=== PATIENT | male | born 1985 | race Caucasian/White ===

== ENCOUNTER 2021-04-15 08:08 | Outpatient (REF) | payer OTHER, MEDICAID, SELFPAY ==
--- NOTE | ~2021-04-15 | US_ITS ---
EXAMINATION: US ABDOMEN COMPLETE CLINICAL INFORMATION: Abdominal pain. Jaundice. COMPARISON: None TECHNIQUE: Real-time imaging of the abdominal viscera. FINDINGS: PANCREAS: Not well visualized ABDOMINAL AORTA: The proximal, mid, and distal segments are normal in caliber. INFERIOR VENA CAVA: Visualized portions are normal. LIVER: Normal. The liver is normal in size. The liver contour is normal. Parenchymal echogenicity is normal. No focal hepatic lesion. There is no intrahepatic biliary duct dilatation seen. GALLBLADDER: Normal. The gallbladder is physiologically distended without evidence of stones, sludge, polyps, wall thickening or pericholecystic fluid. COMMON BILE DUCT: Normal in caliber measuring 0.5 cm in diameter. RIGHT KIDNEY: Normal. No hydronephrosis. No renal calculi or focal parenchymal lesions. The kidney measures 11.8 cm in maximum dimension. LEFT KIDNEY: There is a 1.6 x 1.4 x 1.3 cm simple cyst in the upper pole. No hydronephrosis or renal calculi. The kidney measures 11.3 cm in maximum dimension. SPLEEN: Normal. The spleen measures 8.8 cm in maximum dimension. FREE FLUID: None. US/US abdomen complete IMPRESSION: Left renal cyst. Limited visualization of the pancreas. Otherwise unremarkable exam.
== END 2021-04-15 08:09 | disposition home or self-care (01) ==
LOC: HO.US 08:08
PROVIDERS: Visit Provider Nurse Practitioner
DX: R10.84 Generalized abdominal pain (principal); R17 Unspecified jaundice
CPT/HCPCS: 76700

== ENCOUNTER 2023-02-07 16:07 | Outpatient (AMB) | payer OTHER, MEDICAID, SELFPAY ==
[2023-02-07 16:12] VITALS: BP 106/70; PULSE 82; BMI 28.2
--- NOTE | 2023-02-07 16:12 | MHC.OFFVIS ---
Intake Vital Signs 02/07/23 16:12 Height 6 ft 1 in Weight 213 lb 6.519 oz BMI 28.2 BP 106/70 Blood Pressure Location Lt brachial Position Sitting Pulse 82 Intake Visit Reasons: constipation Intake Note: Abdifatah presents in office as a new.patient for constipation PT CC: pt reports having constipation , rectal bleeding , abdominal discomfort pt denies any other GI Issues Rehabilitation Therapy Aide Required: Yes Rehabilitation Therapy Aide Language: Belarusian Accompanied by: Self / Same As Patient Allergies No Known Allergies Allergy (Verified 02/07/23 16:13) HPI constipation HPI Details 37-year-old male with no significant past medical history is here today for initial consultation. Patient was sent to us by his PCP. Patient reports to have constipation occasional abdominal discomfort, bloating postprandially, occasional blood on the tissue when he wipes. Patient does not have any family history of colorectal cancer. History of ovarian cancer. Patient denies melena, hematochezia (except occasionally after bowel movement when wiping), unintentional weight loss or ribbon like stools. Patient denies dyspepsia, dysphagia or odynophagia. Patient does not eat much of a vegetables, does not drink much water. Patient denies any rectal pain. Denies any nausea or vomiting. Denies any fever or chills. [facility] Surgical History (Updated 02/07/23 @ 16:19 by Bon Tamayo) History of testicular surgery Family History (Updated 02/07/23 @ 16:18 by Bon Tamayo) Mother Vaginal cancer Paternal Grandfather Cancer Maternal Uncle Cancer Social History (Updated 02/07/23 @ 16:15 by Bon Tamayo) Household Members: Family Alcohol intake: current Alcohol intake frequency: holidays/special occasions only Patient Tobacco Use Status: Never used Tobacco Review of Systems Const Denies weight gain and Denies weight loss ENT Reports no additional complaints, Denies dysphagia and Denies odynophagia Card Reports no additional complaints Resp Reports no additional complaints GI Reports abdominal pain, Denies belching, Denies melena, Reports bloating, Reports constipation, Denies dysphagia, Denies excessive flatus, Denies dyspepsia, Denies heartburn, Denies diarrhea, Denies loose stools, Denies nausea, Denies odynophagia and Denies vomiting Reports no additional complaints Musc Reports no additional complaints Neuro Reports no additional complaints Psych Reports no additional complaints Endo Reports no additional complaints Physical Exam Vital Signs: Last Vital Signs Pulse 82 02/07/23 16:12 BP 106/70 02/07/23 16:12 BMI result Body Mass Index 28.2 Const General: healthy appearing, no acute distress and well developed Nutritional Appearance: obese Orientation/consciousness: patient oriented x3 HEENT Head: Yes normal to inspection, Yes normocephalic and Yes atraumatic Face and sinus: Yes normal facial exam Mouth: Normal oral and palatal mucosa present Throat: Yes posterior oropharynx normal, Yes tonsils normal and Yes uvula midline Eyes General: appearance normal, both eyes and all related structures Neck Neck: Yes normal visual inspection, Yes full ROM and Yes trachea midline Thyroid: Thyroid normal Resp Effort & Inspection: normal respiratory effort, able to speak in complete sentences, no tracheal deviation and symmetric chest movement Auscultation: clear to auscultation bilaterally Cardio Rate: regular rate Heart sounds: S1 normal heart sound present and S2 normal heart sound present GI Inspection: Yes normal to inspection, No distended and Yes obesity Palpation (GI): Soft to palpation, not firm, nontender and No hepatosplenomegaly present Auscultation: normal bowel sounds General: Yes no CVA tenderness Back/Spine/Pelvis Back: no CVA tenderness Skin General skin exam: elasticity normal, turgor normal and dry skin Neuro General: patient oriented x3 Psych Appearance: grossly normal Mental Status: mental status grossly normal Speech and movement: Normal speech and movement present Assessment & Plan Assessment & Plan (1) Postprandial abdominal bloating: Code(s): R14.0 - Abdominal distension (gaseous) Plan: Occasional postprandial abdominal bloating. Discussed with patient low FODMAP diet. Patient needs to move his bowels better. He was encouraged to increase fluid intake and activity to promote better bowel motility. May also take MiraLax daily (2) Abdominal pain: Code(s): R10.9 - Unspecified abdominal pain Qualifiers: Abdominal location: unspecified location Qualified Code(s): R10.9 - Unspecified abdominal pain Plan: Occasional abdominal cramping if no bowel movement. Sometimes pain in the right upper quadrant. Negative Orozco sign, normal exam. Will send patient for ultrasound. Will check lipase and liver profile. (3) Constipation: Code(s): K59.00 - Constipation, unspecified Qualifiers: Constipation type: slow transit constipation Qualified Code(s): K59.01 - Slow transit constipation Plan: May take [id number] MiraLax. Increase fluid intake and activity to promote better bowel motility. (4) History of rectal bleeding: Code(s): Z87.19 - Personal history of other diseases of the digestive system Plan: Occasional blood when wiping after bowel movement. Will send patient script for Proctosol. Patient will call us if he continue to have rectal bleeding. Normal H&H in September. I will see patient in 3 months, sooner on as needed basis. Patient is agreeable to this plan and verbalizes understanding of instructions. He was given the opportunity to ask questions and all questions answered. Thank you for allowing me to participate in his care Orders: Orders Liver Panel 02/13/23 R10.9 - Unspecified abdominal pain US abdomen complete 02/07/23 R10.9 - Unspecified abdominal pain Lipase 02/13/23 R10.9 - Unspecified abdominal pain Medications: New hydrocortisone 2.5% (Proctosol HC) 1 appl FL BID-QID PRN 30 grams 2RF hemorrhoids K64.9 - Unspecified hemorrhoids Coding Level of Care Code New Pt Level 3 (59575) Diagnoses Postprandial abdominal bloating R14.0 Abdominal pain, unspecified abdominal location R10.9 Abdominal location: unspecified location Slow transit constipation K59.01 Constipation type: slow transit constipation History of rectal bleeding Z87.19 Time Spent (min) 40 Comment 30 minutes spent with patient and additional 10 minutes spent reviewing his records
== END 2023-02-07 16:51 | disposition home or self-care (01) ==
PROVIDERS: Visit Provider Nurse Practitioner Family
DX: R14.0 Abdominal distension (gaseous) (principal); R10.9 Unspecified abdominal pain; K59.01 Slow transit constipation; Z87.19 Personal history of other diseases of the digestive system
CPT/HCPCS: 99203

== ENCOUNTER → 2023-02-07 16:07 | Outpatient (BNVA) | payer OTHER, MEDICAID, SELFPAY | PROVIDERS: Visit Provider Nurse Practitioner Family ==

== ENCOUNTER 2023-02-13 08:50 | Outpatient (REF) | payer OTHER, SELFPAY ==
[2023-02-13 12:01] LABS: Alanine Aminotransferase 82 U/L (0-40); Albumin Level 3.9 g/dL (3.5-5.0); Alkaline Phosphatase 89 U/L (39-117); Aspartate Amino Transferase 46 U/L (5-37); Bilirubin Direct 0.4 mg/dL (0.0-0.5); Bilirubin Total 1.2 mg/dL (0.0-1.0); Lipase 14 U/L (8-78); Total Protein 7.2 g/dL (6.5-8.0)
== END 2023-02-13 08:51 | disposition home or self-care (01) ==
LOC: HO.LAB 08:50
PROVIDERS: PCP Registered Nurse; Visit Provider Nurse Practitioner Family
DX: R10.9 Unspecified abdominal pain (principal)
CPT/HCPCS: 36415; 80076; 83690

== ENCOUNTER 2023-02-28 09:35 | Outpatient (REF) | payer OTHER, SELFPAY ==
[2023-03-01 08:50] LABS: HBc Num1 1.67 S/CO (0.00-0.79); HBsAGNum1 0.34 S/CO (0.00-0.99); Hepatitis A Antibody IgM 0.18 Index (0-0.79); Hepatitis B Surface Antigen Negative (Negative); ~HepC Num1 0.07 S/CO (0.00-0.79); ~Hepatitis A Antibody IgM Nonreactive (Nonreactive); ~Hepatitis B Surface Antibody REACTIVE (Nonreactive); ~Hepatitis C Antibody Nonreactive (Nonreactive)
[2023-03-01 11:43] LABS: HBc Num2 1.82 S/CO; HBc Num3 1.96 S/CO; Hepatitis B Core Antibody Reactive (Nonreactive)
[2023-03-01 18:33] LABS: Transglutaminase IgA <1.0 U/mL
[2023-03-02 12:43] LABS: Immunoglobulin A 224 mg/dL (47-310)
== END 2023-02-28 09:36 | disposition home or self-care (01) ==
LOC: HO.HHCL 09:35
PROVIDERS: Visit Provider Registered Nurse
DX: R10.9 Unspecified abdominal pain (principal); G89.29 Other chronic pain; R74.8 Abnormal levels of other serum enzymes
CPT/HCPCS: 36415; 82784; 86364; 86704; 86706; 86709; 86803; 87340

== ENCOUNTER 2023-03-06 08:51 | Outpatient (REF) | payer OTHER, SELFPAY ==
--- NOTE | ~2023-03-06 | US_ITS ---
EXAMINATION: US ABDOMEN COMPLETE CLINICAL INFORMATION: Unspecified abdominal pain. COMPARISON: Ultrasound abdomen complete 04/15/2021. TECHNIQUE: Real-time imaging of the abdominal viscera. Technically difficult study secondary to bowel gas. FINDINGS: PANCREAS: Obscured by bowel gas ABDOMINAL AORTA: The proximal, mid, and distal segments are normal in caliber. INFERIOR VENA CAVA: Visualized portions are normal. LIVER: Normal. The liver is normal in size. The liver contour is normal. Parenchymal echogenicity is normal. No focal hepatic lesion. There is no intrahepatic biliary duct dilatation seen. GALLBLADDER: Normal. The gallbladder is physiologically distended without evidence of stones, sludge, polyps, wall thickening or pericholecystic fluid. COMMON BILE DUCT: Normal in caliber measuring 0.4 cm in diameter. RIGHT KIDNEY: Normal. No hydronephrosis. No renal calculi or focal parenchymal lesions. The kidney measures 11.7 cm in maximum dimension. LEFT KIDNEY: No hydronephrosis or renal calculi. The kidney measures 10.3 cm in maximum dimension. 1.9 cm simple cyst in the upper pole. No follow-up imaging is recommended. SPLEEN: Normal. The spleen measures 8.1 cm in maximum dimension. FREE FLUID: None. US/US abdomen complete IMPRESSION: The pancreas is not visualized due to bowel gas. Otherwise unremarkable abdominal ultrasound.
== END 2023-03-06 08:52 | disposition home or self-care (01) ==
LOC: HO.US 08:51
PROVIDERS: PCP Registered Nurse; Visit Provider Nurse Practitioner Family
DX: R10.9 Unspecified abdominal pain (principal)
CPT/HCPCS: 76700

== ENCOUNTER 2025-05-13 10:40 | Outpatient (REF) | payer OTHER, MEDICAID, SELFPAY ==
--- OUTSIDE RECORDS SUMMARY | 2025-05-11 11:30 | XMS_ITS | Encounter Summary ---
Author Organization [employer] Address [address] [facility] [address] [place] [address] Care Team Providers Care Lockstitch Pocket Setter Name Role Phone Lakshmi Schroeder Primary Care Provider [phone] Reason for Referral * Consultation (Urgent) - Authorized Specialty Diagnoses / Procedures Referred By Contjasmine waller Referred To Contact Gastroenterology Diagnoses Rectal bleeding Lakshmi Schroeder FNP [address] [place] [address] Phone: tel: fax: [facility] [address] [place] [address] Phone: tel: fax: Referral ID Status Reason Start Date Expiration Date Visits Requested Visits Authorized [id number] Authorized Specialty Services Required 05/13/2025 05/13/2026 1 1 Reason for Visit * Reason Comments sick on site Encounter Details Date Type Department Care Team (Late st Contact Info) Description 05/11/2025 11:30 AM EST Office Visit [facility] [address] [place] [address] Lakshmi Schroeder FNP [address] [place] [address] Rectal bleeding (Primary Dx); Lower urinary tract symptoms (LUTS) Social History Tobacco Use Types Packs/Day Years Used Date Smoking Tobacco: Never Passive Smoke Exposure: Never Smokeless Tobacco: Never Tobacco Cessation:Counseling Given: Not Answered Alcohol Use Standard Drinks/Week Comments Never 0 (1 standard drink = 0.6 oz pur e alcohol) Depression Answer Date Recorded Patient Health Questionnaire-9 Score 0 10/29/2023 Patient Health Questionnaire-9 Score 0 10/29/2023 Last PHQ-9: Questionnaire Data Not on file 0 10/29/2023 Housing Stability Answer Date Recorded What is your housing situation today? I have sarbjit man 12/18/[address] you li ve. Do you have problems with any of the following? None of the above 12/18/2024 Food Insecurity Answer Date Recorded Within the past 12 months, y ou worried that your food would run out before you got money to buy more: Never True 12/18/2024 Within the past 12 months,th e food you bought just didn't last and you didn't have enough money to get more: Never True 03/2025 Transportation Answer Date Recorded In the past 12 months, has l ack of transportation kept you from medical appts, meetings, work or from getting things needed for daily living? No 12/18/2024 Utilities Answer Date Recorded In the past 12 months, has t he electric, gas, oil or water company threatened to shut off services in your home? No 12/18/2024 Depression Answer Date Recorded Patient Health Questionnaire-2 Score 0 10/29/2023 Internet Access Answer Date Recorded Internet Access Q1 Yes 12/18/2024 Internet Access Q2 Not on file 12/18/2024 Sex and Gender Information Value Date Recorded Sex Assigned at Male 04/10/2022 10:39 AM EDT Legal Sex Male 10:39 AM EDT Gender Identity Male 04/10/2022 10:39 AM EDT Sexual Orientation Choose not to disclose 2021 10:39 AM EDT documented as of this encounter Last Filed Vital Signs Vital Sign Reading Time Taken Comments Blood Pressure 120/80 05/11/2025 11:25 AM EST Pulse 88 05/11/2025 11:25 AM EST Temperature 36.5 C (97.7 F) 05/11/2025 11:25 AM EST Respiratory Rate 20 05/11/2025 11:25 AM EST Oxygen Saturation - - Inhaled Oxygen Concentration - - Weight 106 kg (234 lb 9.6 oz) 05/11/2025 11:25 A M EST Height 185.4 cm (6' 1 ) 05/11/2025 11:25 AM EST Body Mass Index 30.95 05/11/2025 11:25 AM EST documented in this encounter Progress Notes * Lakshmi Stockton, OIL DERRICK OPERATOR - 05/11/2025 11:30 AM EST SUBJECTIVE: Abdifatah Romero is a 39 y.o. year old male who presents for evaluation of recurrent rectal bleeding. Last PCP visit 10/2023 Acute Concerns: Constipation and Rectal Bleeding - Reports intermittent rectal bleeding, described as bright red and shiny, seen in toilet and on toilet paper. Present for several years and associated with chronic constipation. Last episode approx 1 month ago. - Previously seen by [facility]; no imaging performed. Advised treatment for constipation. - Using fiber supplement (psyllium husk) for constipation, reports it is helpful - Denies pain associated with rectal bleeding - Reports occasional perianal itching - Of note, reports mom with a history of colon cancer (history previously unknown) - NO weight loss, abdominal pain Urinary Symptoms - Reports urinary hesitancy and dribbling for past 6-7 months - Reports nocturia, urinating 3-4 times per night - Reports occasional sensation of incomplete bladder emptying - Denies dysuria except for one episode of burning sensation 2 weeks ago, which resolved - Denies hematuria - Denies urethral discharge - Denies new sexual partners Social History Social History Narrative Lives with: Lives with Two children Employment/Education: [employer] Tobacco Use: None Alcohol Use: None Marijuana Use: None Problem List[1] Surgical History[2] Family History[3] Review of Systems Constitutional: Negative for activity change, diaphoresis, fatigue, fever and unexpected weight change. Eyes: Negative for visual disturbance. Respiratory: Negative for apnea, cough, chest tightness and shortness of breath. Cardiovascular: Negative for chest pain, palpitations and leg swelling. Gastrointestinal: Positive for blood in stool and constipation. Negative for abdominal pain and nausea. Neurological: Negative for dizziness, syncope, light-headedness and headaches. OBJECTIVE: Visit Vitals BP 120/80 (BP Location: Left arm, Patient Position: Sitting, BP Cuff Size: Adult) Pulse 88 Temp 97.7 ??F (36.5 ??C) (Oral) Resp 20 Ht 6' 1 (1.854 m) Wt 234 lb 9.6 oz (106 kg) BMI 30.95 kg/m?? Smoking Status Never BSA 2.34 m?? Physical Exam Exam conducted with a instrument and electrical technician present. Constitutional: General: He is not in acute distress. Appearance: Normal appearance. HENT: Head: Normocephalic. Right Ear: External ear normal. Left Ear: External ear normal. Eyes: Conjunctiva/sclera: Conjunctivae normal. Cardiovascular: Rate and Rhythm: Normal rate and regular rhythm. Heart sounds: Normal heart sounds. Pulmonary: Effort: Pulmonary effort is normal. Abdominal: General: Bowel sounds are normal. There is no distension. Palpations: Abdomen is soft. There is no mass. Tenderness: There is no abdominal tenderness. There is no guarding or rebound. Hernia: No hernia is present. Genitourinary: Prostate: Normal. Not tender. Rectum: Normal. No tenderness, anal fissure, external hemorrhoid or internal hemorrhoid. Normal anal tone. Skin: General: Skin is warm and dry. Neurological: General: No focal deficit present. Mental Status: He is alert and oriented to person, place, and time. Psychiatric: Mood and Affect: Mood normal. Behavior: Behavior normal. ASSESSMENT/PLAN Rectal bleeding: - Stefan rectal bleeding associated with constipation and hard stools. No associated pain during bleeding episodes. No weight loss, fever, or diarrhea. - Digital rectal exam unremarkable - Continue psyllium husk fiber supplement for constipation management. - Start miralax PRN - Check CBC - Hydrocortisone for perianal itching - Given family history, referral back to GI for colonoscopy Lower urinary tract symptoms (LUTS): - Lower urinary tract symptoms including nocturia, intermittent stream, and sensation of incompleteemptying. No dysuria or hematuria. - Prostate exam unremarkable - Check UA, PSA - Accepts STI screen - Focus on treating constipation - If symptoms persist plan for urology referral Diagnosis Plan 1. Rectal bleeding CBC auto differential CBC auto differential polyethylene glycol, PEG, 3350 (MiraLax) 17 GM/SCOOP powder hydrocortisone (Anusol-HC) 2.5 % rectal cream Referral to Gastroenterology Referral to Gastroenterology 2. Lower urinary tract symptoms (LUTS) Urinalysis, Complete, with Reflex to Culture PSA,Total Chlamydia/N. Gonorrhoeae RNA, TMA, Urogenitial Urinalysis, Complete, with Reflex to Culture PSA,Total Chlamydia/N. Gonorrhoeae RNA, TMA, Urogenitial This note was drafted using [employer] (M.dot) technology. The patient/patient's guardian has been informed and has consented to the use of this technology: Yes Follow Up: 6 months, sooner PRN Medications Ordered Prior to Encounter[4] This note was drafted using Ambient (AI) technology. The patient/patient's guardian has been informed and has consented to the use of this technology: Yes Estonian Translation: Provided by [facility] staff member EMILY Neal [1] Patient Active Problem List Diagnosis Nonalcoholic fatty liver disease Constipation Chronic abdominal pain [2] No past surgical history on file. [3] Family History Problem Relation Name Age of Onset Uterine cancer Mother Stomach cancer Paternal Grandfather Colon cancer Neg Hx Prostate cancer Neg Hx [4] Current Outpatient Medications on File Prior to Visit Medication Sig Dispense Refill docusate sodium (Colace) 100 MG capsule TAKE 1 CAPSULE BY MOUTH TWICE DAILY 180 capsule 1 famotidine (Pepcid) 20 MG tablet Take 1 tablet (20 mg) by mouth 2 times daily. 60 tablet 11 hydrocortisone (Anusol-HC) 2.5 % rectal cream Insert into the rectum 2 times daily. For up to 7d. 28 g 0 No current facility-administered medications on file prior to visit. documented in this encounter Plan of Treatment Scheduled Orders Name Type Priority Associated Diagnoses Orde r Schedule PSA,Total Lab Routine Lower urinary tract symptoms (LUTS) Expected: 05/11/2025, Expires: 05/11/2026 Chlamydia/N. Gonorrhoeae RNA, TMA, Urogenitial Microbiology Routine Lower urinary tract symptoms (LUTS) Expected: 05/11/2025 (Approximate), Expires: 05/11/2026 Scheduled Referrals Name Type Priority Associated Diagnoses Order Schedule Referral to Gastroenterology Outpatient Referral Urgent Rectal bleeding Expected: 05/13/2025 (Approximate), Expires: 05/13/2026 documented as of this encounter Procedures Procedure Name Priority Date/Time Associated Diagnosis Comments URINALYSIS, COMPLETE, WITH REFLEX TO CULTURE Routine 05/13/2025 10:46 AM EST Lower urinary tract symptoms (LUTS) CBC WITH AUTO DIFFERENTIAL Routine 05/13/2025 10:46 AM EST Rectal bleeding documented in this encounter Results * (ABNORMAL) Urinalysis, Complete, with Reflex to Culture (05/13/2025 10:46 AM EST) Color Urine Yellow [facility] Appearance Urine Clear [facility] PH 7.5 5.0 - 9.0 [facility] Glucose Urine UA Negative Negative mg/dL [facility] Urine Blood Negative Negative [facility] Specific [place] - Urine >=1.030(H) 1.005 - 1.025 [facility] Urine Protein Negative Neg-Trace mg/dL [facility] Urine Ketones Negative Negative mg/dL [facility] Nitrite Urine Negative Negative [facility] Leukocyte Esterase Urine Negative Negative [facility] RBC Urine 0-2 0 - 2 /HPF [facility] Urine WBC 0-5 0 - 5 /HPF [facility] Urine Squamous Epithelial Cell 0-2 0 - 2 /HPF [facility] Urine Bacteria None Seen None Seen [facility] Hyaline Casts, Urine 0-2 0 - 2 /LPF [facility] Urine 05/13/2025 10:4 6 AM EST 05/13/2025 11:17 AM EST Narrative [facility] - 05/13/2025 11:42 AM EST Urine, Clean Catch [facility] URINE ORDERABLES Final Re sult [facility] [address] [place] [phone] * (ABNORMAL) CBC auto differential (05/13/2025 10:46 AM EST) White Blood Count 5.2 4.8 - 10.8 X10*3/uL [facility] Red Blood Count 4.95 4.60 - 5.80 X10*6/uL [facility] Hemoglobin 15.5 14.0 - 18.0 g/dl [facility] Hematocrit 45.9 42.0 - 52.0 % [facility] Mean Corpuscular Volume 92.7 80.0 - 98.0 fL [facility] Mean Corpuscular Hemoglobin 31.3 27.0 - 33.0 pg [facility] Mean Corpuscular HGB Conc 33.8 31.0 - 36.0 g/dl [facility] Red Cell Distribution Width 11.9 11.0 - 16.0 % [facility] Platelet Count 235 160 - 400 X10*3/uL [facility] Mean Platelet Volume 11.0 9.4 - 12.4 fL [facility] Neutrophils Percent Auto 46.8 45 - 73 % [facility] Imm Gran Pct Auto 0.2 0.0 - 0.4 % [facility] Lymphocytes Percent Auto 41.7(H) 20 - 40 % [facility] Monocytes Percent Auto 8.7 2 - 11 % [facility] Eosinophils Percent Auto 1.4 0 - 4 % [facility] Basophils Percent Auto 1.2 0 - 2 % [facility] NRBC Pct Auto 0.0 0.0 - 0.2 /100WBC [facility] Neutrophils Absolute Auto 2.4 2.0 - 8.3 x10*3/uL [facility] Imm Gran Abs Auto 0.01 0.00 - 0.03 X10*3/uL [facility] Lymphocytes Absolute Auto 2.2 1.2 - 4.9 X10*3/uL [facility] Monocytes Absolute Auto 0.5 0.1 - 1.2 X10*3/uL [facility] Eosinophils Absolute Auto 0.1 0.0 - 0.4 X10*3/uL [facility] Basophils Absolute Auto 0.1 0.0 - 0.2 X10*3/uL [facility] NRBC Abs Auto 0.000 0.0 - 0.012 X10*3/uL [facility] Blood Venous blood specimen / Unknown 05/13/2025 10:46 AM EST 05/13/2025 11:20 AM EST [facility] BLOOD ORDERABLES Final Re sult [facility] [address] [place] [address] [phone] documented in this encounter Visit Diagnoses Diagnosis Rectal bleeding- Primary Hemorrhage of rectum and anus Lower urinary tract symptoms (LUTS) documented in this encounter Additional Health Concerns Assessment Noted Time PHQ-9 Depression Total Score: 0 10/29/19 24 11:50 AM EDT documented as of this encounter Care Teams Lockstitch Pocket Setter Relationship Specialty Start Date End Date Lakshmi Schroeder FNP [address] [place] [id number] PCP - General Family Medicine 02/02/22 documented as of this encounter
[2025-05-13 11:23] LABS: MANUAL DIFF FLAG NO
[2025-05-13 11:28] LABS: Hematocrit 45.9 % (42.0-52.0); Hemoglobin 15.5 g/dl (14.0-18.0); Imm Gran Abs Auto 0.01 X10*3/uL (0.00-0.03); Imm Gran Pct Auto 0.2 % (0.0-0.4); Lymphocytes Absolute Auto 2.2 X10*3/uL (1.2-4.9); Mean Corpuscular HGB Conc 33.8 g/dl (31.0-36.0); Mean Corpuscular Hemoglobin 31.3 pg (27.0-33.0); Mean Corpuscular Volume 92.7 fL (80.0-98.0); NRBC Abs Auto 0.000 X10*3/uL (0.0-0.012); NRBC Pct Auto 0.0 /100WBC (0.0-0.2); Platelet Count 235 X10*3/uL (160-400); Red Blood Count 4.95 X10*6/uL (4.60-5.80); White Blood Count 5.2 X10*3/uL (4.8-10.8)
[2025-05-13 11:30] LABS: Appearance Urine Clear; Glucose Urine UA Negative (Negative); PH 7.5 (5.0-9.0); Specific Gravity - Urine >= 1.030 (1.005-1.025)
--- OUTSIDE RECORDS SUMMARY | 2025-05-13 12:17 | XMS_ITS | Encounter Summary ---
Author Organization [email or web address] Address [address] [facility] 7 [place] [address] Care Team Providers Care Pharmacognosist Name Role Phone [facility] Primary Care Provider [phone] Reason for Visit * Reason Onset Date Comments Med Refill 05/10/2025 Encounter Details Date Type Department Care Team ([facility] st Contact Info) Description 05/10/2025 Refill [facility] [address] [place] [address] [facility] [address] [place] [address] Chronic abdominal pain Social History Tobacco Use Types Packs/Day Years Used Date Smoking Tobacco: Never Passive Smoke Exposure: Never Smokeless Tobacco: Never Alcohol Use Standard Drinks/Week Comments Never 0 [...] AM EDT documented as of this encounter Plan of Treatment Not on file documented as of this encounter Visit Diagnoses Diagnosis Chronic abdominal pain Abdominal pain, unspecified site documented in this encounter Additional Health Concerns Assessment Noted Time PHQ-9 Depression Total Score: 0 10/29/19 24 11:50 AM EDT documented as of this encounter Care Teams Pharmacognosist Relationship Specialty Start Date End Date Lakshmi Schroeder FNP [address] [place] [phone] PCP - General Family Medicine 02/02/22 documented as of this encounter
--- OUTSIDE RECORDS SUMMARY | 2025-05-13 12:17 | XMS_ITS | Encounter Summary ---
Author Organization [employer] Address [address] [facility] 7 [place] [address] Care Team Providers Care C Iron Worker Name Role Phone [facility] Primary Care Provider [phone] Reason for Visit * Reason Onset Date Comments Provider Change 12/18/2022 Encounter Details Date Type Department Care Team (Late st Contact Info) Description 12/18/2022 Telephone [facility] MED[facility]INE [address] [place] [address] [facility] [address] [place] [address] Provider Change Social History Tobacco Use Types Packs/Day Years Used Date Smoking Tobacco: Never Smokeless Tobacco: Never Alcohol Use Standard Drinks/Week Comments Never 0 (1 standard drink = 0.6 oz pur e alcohol) Sex and Gender Information Value Date Recorded Sex Assigned at Male 04/10/2022 10:39 AM EDT Legal Sex Male 10:39 AM EDT Gender Identity Male 04/10/2022 10:39 AM EDT Sexual Orientation Choose not to disclose 2021 10:39 AM EDT documented as of this encounter Miscellaneous Notes * Telephone Encounter - Asya Hernandez - 01/01/2023 10:24 AM EDT Tc from pt calling in regards to message above. * Telephone Encounter - Rafael Alfred - 12/18/2022 10:49 AM EDT Tc from pt requesting switch provider due to provider not meeting patient's medical needs Please contact pt at [phone] Bengali Speaker documented in this encounter Plan of Treatment Not on file documented as of this encounter Visit Diagnoses Not on filedocumented in this encounter Additional Health Concerns Assessment Noted Time PHQ-9 Depression Total Score: 0 08/07/19 23 1:07 PM EST documented as of this encounter Care Teams C Iron Worker Relationship Specialty Start Date End Date Lakshmi Schroeder FNP [address] [place] [id number] PCP - General Family Medicine 02/02/22 documented as of this encounter
--- OUTSIDE RECORDS SUMMARY | 2025-05-13 12:17 | XMS_ITS | Clinical Summary ---
Author Organization [employer] Address [address] [facility] 7t [place] [address] Care Team Providers Care Gang Ripsaw Operator Name Role Phone Alexandre [facility] Primary Care Provider [phone] Allergies No known active allergies Medications docusate sodium (Colace) 100 MG capsuleIndicatio ns:Constipation, unspecified constipation type Take 1 capsule (100 mg) by mouth 2 times daily. 180 capsule 1 5 11:04 AM EST 05/11/20 25 Active polyethylene glycol, PEG, 3350 (MiraLax) 17 GM/SCOOP powderIndication s:Rectal bleeding Take 17 g by mouth Once per day. 527 g 2 5 11:04 AM EST 05/11/20 25 Active hydrocortisone (Anusol-HC) 2.5 % rectal creamIndications :Rectal bleeding Insert into the rectum 2 times daily. 28 g 05/11/20 25 Active famotidine (Pepcid) 20 MG tabletIndication s:Chronic abdominal pain Take 1 tablet (20 mg) by mouth 2 times daily. 60 tablet 11 5 11:04 AM EST 05/11/20 25 026 Active hydrocortisone (Anusol-HC) 2.5 % rectal creamIndications :BRBPR (bright red blood per rectum) Insert into the rectum 2 times daily. For up to 7d. 28 g 01/05/20 23 025 Discontinued(Re order (will not trigger notification to Pharmacy)) docusate sodium (Colace) 100 MG capsuleIndicatio ns:Constipation, unspecified constipation type TAKE 1 CAPSULE BY MOUTH TWICE DAILY 180 capsule 1 04/01/20 23 025 Discontinued(Re order (will not trigger notification to Pharmacy)) famotidine (Pepcid) 20 MG tabletIndication s:Chronic abdominal pain Take 1 tablet (20 mg) by mouth 2 times daily. 60 tablet 11 05/06/20 23 025 Discontinued(Re order (will not trigger notification to Pharmacy)) Active Problems Problem Noted Date Diagnosed Date Chronic abdominal pain 09/05/2022 Overview (09/05/2022): long hx of chronic intermittent LLQ pain and constipation. Previous evaluation in 2020 with TSH and celiac panel negative. Referred to GI 07/2022 Nonalcoholic fatty liver disease 03/17/2021 Constipation 03/17/2021 Encounters Date Type Department Care Team Description 05/11/2025 11:30 AM EST Office Visit [facility] [address] [place] [phone] Lakshmi Schroeder FNP Rectal bleeding (Primary Dx); Lower urinary tract symptoms (LUTS) 05/11/2025 Travel 05/10/2025 Refill [facility] [address] [place] [phone] Lakshmi Schroeder FNP Chronic abdominal pain 05/10/2025 Refill [facility] [address] [place] [address] [phone] Janie Barbosa ANP Constipation, unspecified constipation type; Chronic abdominal pain 04/29/2025 Telephone [facility] [address] [place] [address] [phone] Lakshmi Schroeder FNP Nurse Triage from Last 3 Months Immunizations Immunization Administration Dates Next Due Influenza injectable quadrivalent preservative f ree 02/28/2023 Family History Medical History Relation Name Comments Uterine cancer Mother Stomach cancer Paternal Grandfather Colon cancer Neg Hx Prostate cancer Neg Hx Relation Name Status Comments Mother Paternal Grandfather Social History Tobacco Use Types Packs/Day Years [...] not to disclose 2021 10:39 AM EDT Last Filed Vital Signs Vital Sign Reading Time Taken Comments Blood Pressure 120/80 05/11/2025 11:25 AM EST Pulse 88 05/11/2025 11:25 AM EST Temperature 36.5 C (97.7 F) 05/11/2025 11:25 AM EST Respiratory Rate 20 05/11/2025 11:25 AM EST Oxygen Saturation 97% 04/29/2024 3:48 PM EST Inhaled Oxygen Concentration - - Weight 106 kg (234 lb 9.6 oz) 05/11/2025 11:25 A M EST Height 185.4 cm (6' 1 ) 05/11/2025 11:25 AM EST Body Mass Index 30.95 05/11/2025 11:25 AM EST Plan of Treatment Health Maintenance Due Date Last Done Comments Disability Screening 1984 Alcohol/Substance Use Screening 1996 Family Planning (PISQ) 1999 HPV Vaccines (1 - Male 3-dose series) 1999 Hepatitis A Vaccines (1 of 2 - Risk 2-dose series) 2003 Hepatitis B Vaccines (1 of 3 - 19+ 3-dose series) 2003 Depression Screening 10/28/2024 10/29/2023, 10/29/19 24 COVID-19 Vaccine (2 - season) 2025 11/10/2020 Influenza Vaccine (#1) 2025 3, 03/22/2022, 03/17/2021, Additional history exists SDOH Screening 12/18/2025 12/18/2024 Tobacco Screening 05/13/2026 05/13/2025 Lipid Panel 09/20/2027 09/19/2022, 03/18/2021 DTaP/Tdap/Td Vaccines (2 - Td or Tdap) 02/16/2030 02/17/2020 Zoster Vaccines (1 of 2) 2034 RSV Patients and Patients Aged 60 years or older (1 - 1-dose 75+ series) 2059 HIV Screening Completed 03/18/2021 Hepatitis C Screening Completed 02/28/2023, 021 HIB Vaccines Aged Out No longer eligi ble based on patient's age to complete this topic IPV Vaccines Aged Out No longer eligi ble based on patient's age to complete this topic Meningococcal B Vaccine Aged Out No l onger eligible based on patient's age to complete this topic Meningococcal Vaccine Aged Out No yamile thelma eligible based on patient's age to complete this topic Pneumococcal Vaccine: Pediatrics (0 to 5 Years) and At-Risk Patients (6 to 49) Years Aged Out No longer eligible based on patient's age to complete this topic RSV under 20 months Aged Out No longe r eligible based on patient's age to complete this topic Rotavirus Vaccines Aged Out No longer eligible based on patient's age to complete this topic Procedures Procedure Name Priority Date/Time Associated Diagnosis Comments URINALYSIS, COMPLETE, WITH REFLEX TO CULTURE Routine 05/13/2025 10:46 AM EST Lower urinary tract symptoms (LUTS) CBC WITH AUTO DIFFERENTIAL Routine 05/13/2025 10:46 AM EST Rectal bleeding HEPATITIS PANEL, GENERAL Routine 02/28/2023 9:41 AM EDT Elevated liver enzymes LIPID PANEL, STANDARD Routine 09/19/2022 9:13 AM EDT Chronic abdominal pain HIV 1/2 ANTIGEN/ANTIBODY, FOURTH GENERATION W/RFL Routine 03/18/2021 8:53 AM EDT from Last 3 Months or Most Recently Relevant to Health Maintenance Results * (ABNORMAL) Urinalysis, Complete, with Reflex to Culture (05/13/2025 10:46 AM EST) Color Urine Yellow [facility] Appearance Urine Clear [facility] PH 7.5 5.0 - 9.0 [facility] Glucose Urine UA Negative Negative mg/dL [facility] Urine Blood Negative Negative [facility] Specific [place] - Urine >=1.030(H) 1.005 - 1.025 [facility] Urine Protein Negative Neg-Trace mg/dL [facility] Urine Ketones Negative Negative mg/dL [facility] Nitrite Urine Negative Negative [facility] Leukocyte Esterase Urine Negative Negative [facility] RBC Urine 0-2 0 - 2 /HPF [facility] Urine WBC 0-5 0 - 5 /HPF [facility] Urine Squamous Epithelial Cell 0-2 0 - 2 /HPF [facility] Urine Bacteria None Seen None Seen [facility] Hyaline Casts, Urine 0-2 0 - 2 /LPF [facility] Urine 05/13/2025 10:4 6 AM EST 05/13/2025 11:17 AM EST Narrative [facility] - 05/13/2025 11:42 AM EST Urine, Clean Catch us Lakshmi Alexandre [employer] LAB URINE ORDERABLES Final Re sult [facility] [address] [place] [address] [phone] * (ABNORMAL) CBC auto differential (05/13/2025 10:46 AM EST) White Blood Count 5.2 4.8 - 10.8 X10*3/uL [facility] Red Blood Count 4.95 4.60 - 5.80 X10*6/uL [facility] Hemoglobin 15.5 14.0 - 18.0 g/dl [facility] Hematocrit 45.9 42.0 - 52.0 % [facility] Mean Corpuscular Volume 92.7 80.0 - 98.0 fL [facility] Mean Corpuscular Hemoglobin 31.3 27.0 - 33.0 pg [facility] Mean Corpuscular HGB Conc 33.8 31.0 - 36.0 g/dl [facility] Red Cell Distribution Width 11.9 11.0 - 16.0 % [facility] Platelet Count 235 160 - 400 X10*3/uL [facility] Mean Platelet Volume 11.0 9.4 - 12.4 fL [facility] Neutrophils Percent Auto 46.8 45 - 73 % [facility] Imm Gran Pct Auto 0.2 0.0 - 0.4 % [facility] Lymphocytes Percent Auto 41.7(H) 20 - 40 % [facility] Monocytes Percent Auto 8.7 2 - 11 % [facility] Eosinophils Percent Auto 1.4 0 - 4 % [facility] Basophils Percent Auto 1.2 0 - 2 % [facility] NRBC Pct Auto 0.0 0.0 - 0.2 /100WBC [facility] Neutrophils Absolute Auto 2.4 2.0 - 8.3 x10*3/uL [facility] Imm Gran Abs Auto 0.01 0.00 - 0.03 X10*3/uL [facility] Lymphocytes Absolute Auto 2.2 1.2 - 4.9 X10*3/uL [facility] Monocytes Absolute Auto 0.5 0.1 - 1.2 X10*3/uL [facility] Eosinophils Absolute Auto 0.1 0.0 - 0.4 X10*3/uL [facility] Basophils Absolute Auto 0.1 0.0 - 0.2 X10*3/uL [facility] NRBC Abs Auto 0.000 0.0 - 0.012 X10*3/uL [facility] Blood Venous blood specimen / Unknown 05/13/2025 10:46 AM EST 05/13/2025 11:20 AM EST [facility] LAB BLOOD ORDERABLES Final Re sult [facility] [address] [place] [phone] [phone] * Hepatitis Panel, General (02/28/2023 9:41 AM EDT) Hepatitis A IgM Nonreactive Nonreactive [facility] Comment:IgM antibodies to MAURICE V not detected; does not exclude earlyacute or recovered HAV infection. ~Hepatitis B Surface Antibody REACTIVE Nonreactive [facility] Comment:REACTIVE: > 11.99 mI U/mL Hepatitis B Core Antibody Reactive Nonreactive [facility] Comment:Presumptive evidence of anti-HBc. Hepatitis C Antibody Nonreactive Nonreactive [facility] Comment:Antibodies to HCV no t detected; does not exclude early acuteHCV infection. Hepatitis B Surface Ag Negative Negative [facility] Blood 02/28/2023 9:41 AM EDT 02/28/2023 11:30 AM EDT [facility] LAB BLOOD ORDERABLES Final Re sult [facility] [address] [place] [phone] * Lipid Panel, Standard (09/19/2022 9:13 AM EDT) [facility] Cholesterol, Total 162 <200 mg/dL [employer] [place] [employer] HDL Cholesterol 64 > OR = 40 mg/dL [employer] [place] [employer] Triglycerides 69 <150 mg/dL [employer] [place] [employer] LDL Cholesterol 83 mg/dL (calc) [employer] [place] [employer] Comment: Reference range: <100 Desirable range <100 mg/dL for primary prevention; <70 mg/dL for patients with CHD or diabetic patients with > or = 2 CHD risk factors. LDL-C is now calculated using the Keena calculation, which is a validated novel method providing better accuracy than the Friedewald equation in the estimation of LDL-C. Dung SS et al. ROXIE. 2013;310(38): 1884-3235 (http://education.[employer]/faq/COA878) Chol/HDLC Ratio 2.5 <5.0 (calc) [employer] [place] [employer] Non-HDL Cholesterol 98 <130 mg/dL (calc) [employer] [place] [employer] Comment: For patients with diabetes plus 1 major ASCVD risk factor, treating to a non-HDL-C goal of <100 mg/dL (LDL-C of <70 mg/dL) is considered a therapeutic option. Blood Venous blood specimen / Unknown 09/19/2022 9:13 AM EDT 09/19/2022 9:14 AM EDT Narrative [facility] - 09/20/2022 12:18 PM EDT FASTING:YES FASTING: YES [facility] LAB BLOOD ORDERABLES Final Re sult [facility] [address], [place] [phone] [employer] [place] [employer] [address] [place] [phone] * HIV 1/2 ANTIGEN/ANTIBODY,FOURTH GENERATION W/RFL (03/18/2021 8:53 AM EDT) [facility] HIV-1/2 ANTIGEN AND ANTIBODIES, 4TH GENERATION W/ REFLEX NON-REACT DEANDRA NON-REACT DEANDRA [facility] Comment: HIV-1 antigen and HIV-1/HIV-2 antibodies were not detected. There is no laboratory evidence of HIV infection. PLEASE NOTE: This information has been disclosed to you from records whose confidentiality may be protected by state law. If your state requires such protection, then the state law prohibits you from making any further disclosure of the information without the specific written consent of the person to whom it pertains, or as otherwise permitted by law. A general authorization for the release of medical or other information is NOT sufficient for this purpose. For additional information please refer to http://education.[employer]/faq/FLZ539 (This link is being provided for informational/ educational purposes only.) The performance of this assay has not been clinically validated in patients less than 2 years old. 03/18/2021 8:53 AM EDT us Kristine Chavis NP LAB BLOOD ORDERABLES Final Resu lt [facility] [address] from Last 3 Months or Most Recently Relevant to Health Maintenance Insurance [facility] Care Teams Gang Ripsaw Operator Relationship Specialty Start Date End Date Lakshmi Schroeder FNP [address] [place] [phone] PCP - General Family Medicine 02/02/22
--- OUTSIDE RECORDS SUMMARY | 2025-05-13 12:17 | XMS_ITS | Encounter Summary ---
Author Organization [employer] Address [address] [place] [address] Care Team Providers Care Barrel Rib Matting Machine Operator Name Role Phone Lakshmi Schroeder DIRECTOR MANUFACTURING ENGINEERING Primary Care Provider [phone] Reason for Visit * Reason Onset Date Comments Med Refill 05/10/2025 Encounter Details Date Type Department Care Team (Late st Contact Info) Description 05/10/2025 Refill [facility] [address] [place] [address] Janie Barbosa, KELSEY [address] [place] [address] Constipation, unspecified constipation type; Chronic abdominal pain Social History Tobacco Use [...] as of this encounter Visit Diagnoses Diagnosis Constipation, unspecified constipation type Chronic abdominal pain Abdominal pain, unspecified site documented in this encounter Additional Health Concerns Assessment Noted Time PHQ-9 Depression Total Score: 0 10/29/19 24 11:50 AM EDT documented as of this encounter Care Teams Barrel Rib Matting Machine Operator Relationship Specialty Start Date End Date Lakshmi Schroeder FNP [address] [place] [phone] PCP - General Family Medicine 02/02/22 documented as of this encounter
--- OUTSIDE RECORDS SUMMARY | 2025-05-13 12:17 | XMS_ITS | Encounter Summary ---
Author Organization [employer] Address [address] [place] [address] Care Team Providers Care Report Specialist Name Role Phone Alexandre [facility] Primary Care Provider [phone] Encounter Details Date Type Department Care Team (Latest Contact Info) Description 05/11/2025 Travel Social History Tobacco Use Types Packs/Day Years [...] documented as of this encounter Care Teams Report Specialist Relationship Specialty Start Date End Date Lakshmi Schroeder FNP [address] [place] [phone] PCP - General Family Medicine 02/02/22 documented as of this encounter
[2025-05-13 12:21] LABS: Prostate Specific Antigen 1.37 ng/mL (<0.05-4.0)
== END 2025-05-13 10:41 | disposition home or self-care (01) ==
LOC: HO.HHCL 10:40
PROVIDERS: PCP Registered Nurse; Visit Provider Registered Nurse
DX: K62.5 Hemorrhage of anus and rectum (principal); R39.9 Unspecified symptoms and signs involving the genitourinary system; Z12.5 Encounter for screening for malignant neoplasm of prostate
CPT/HCPCS: 36415; 81001; 84153; 85025